=== PATIENT | female | born 1955 | race Caucasian/White ===

== ENCOUNTER → 2017-06-10 | Outpatient (CLI) | payer OTHER ==
[~2017-06-10] MED LIST: ALBU8.5H5 INH; ALPR0.254 PO; CEPH-376 PO; DEXA1TAB5 PO; GABA300C10 PO; LEVO50TA5 PO; LORA0.5T PO; ONDA4TAB13 SL; PANT40TA3 PO; PROC5TAB PO; SERT100T5 PO; SIMV40TA3 PO
== END | disposition home or self-care (01) ==
LOC: ROC 13:18
PROVIDERS: ATTEND Radiology Radiation Oncology
DX: C50.912 Malignant neoplasm of unspecified site of left female breast (principal); Z92.21 Personal history of antineoplastic chemotherapy
CPT/HCPCS: 99212; G0463

== ENCOUNTER → 2018-07-27 | Outpatient (CLI) | payer OTHER ==
[~2018-07-27] MED LIST changes: -PROC5TAB PO; +PROC5TAB2 PO
== END | disposition home or self-care (01) ==
LOC: ROC 07:50
PROVIDERS: ATTEND Radiology Radiation Oncology
DX: C50.412 Malignant neoplasm of upper-outer quadrant of left female breast (principal)
CPT/HCPCS: 99213; G0463

== ENCOUNTER 2019-12-29 07:30 | Outpatient (CLI) | payer OTHER ==
[~2019-12-29 07:30] MED LIST changes: +SERT100T32 PO; -SERT100T5 PO; +SIMV40TA20 PO; -SIMV40TA3 PO
== END 2019-12-29 23:59 | disposition home or self-care (01) ==
LOC: ROC 07:30
PROVIDERS: ATTEND Radiology Radiation Oncology
DX: Z08 Encounter for follow-up examination after completed treatment for malignant neoplasm (principal); Z85.3 Personal history of malignant neoplasm of breast
CPT/HCPCS: 99213; G0463